=== PATIENT | male | born 1980 | race Hispanic/Latino ===

== ENCOUNTER 2025-07-14 21:01 | Inpatient (IN) | payer OTHER ==
[2025-07-14 21:22] LABS: Actual Bicarbonate (HCO3v) 22.3 mEq/L (22-28); Analyzer IN Cardio ER; Base Excess -1.5 mEq/L (-2.0 to +3.0); Calcium, Ionized (venous) 1.11 mmol/L (1.16-1.32); Chloride (VBG) 107 mmol/L (98-106); Hematocrit-VBG 44 % (42.0-52.0); Hemoglobin (Hb) 15.1 g/dL (13.2-17.3); Potassium (VBG) 3.14 mmol/L (3.70-5.30); Sodium 142 mmol/L (133-146)
[2025-07-14] MEDS ORDERED: Rocuronium Bromide 10 MG/ML (10ML VIAL) ONE (21:30)
[2025-07-14] MEDS ORDERED: Etomidate 40 MG (20 mL) VIAL ONE (21:30)
[2025-07-14 21:32] LABS: INR-International Normal Ratio 1.0; PTT 28.0 sec (22.9-36.1); Prothrombin Time 13.6 sec (12.0-14.7)
[2025-07-14 21:33] LABS: ALT (SGPT) 28 U/L (Less than 45); AST (SGOT) 22 U/L (11-34); Albumin 4.2 g/dL (3.1-4.5); Alkaline Phosphatase 62 U/L (40-110); Anion Gap 16 mmol/L (10-20); BUN (Urea Nitrogen) 20 mg/dL (8.9-20.6); Bilirubin, Total 0.9 mg/dL (0.3-1.2); Calc. Creatinine Clearance 0 mL/min (70-130); Calcium 9.0 mg/dL (7.8-10.44); Carbon Dioxide 24 mmol/L (22-29); Chloride 108 mmol/L (98-107); Globulin 3.2 g/dL (2.4-3.5); Glucose 90 mg/dL (70-105); Potassium 3.0 mmol/L (3.5-5.1); Sodium 145 mmol/L (136-145)
[2025-07-14 21:57] LABS: #Basophils Less than 0.03 10x3/uL (0.0-0.2); #Eosinophils 0.05 10x3/uL (0.0-0.7); #Monocytes 0.56 10x3/uL (0.11-0.59); #Neutrophils 3.93 10x3/uL (1.40-6.50); %Basophils 0.3 % (0.0-1.0); %Eosinophils 0.8 % (0.0-10.0); %Lymphocytes 30.8 % (21.0-51.0); %Monocytes 8.5 % (0.0-10.0); %Neutrophils 59.4 % (42.0-75.0); Hematocrit 42.0 % (42.0-52.0); Hemoglobin 13.8 g/dL (14.0-18.0); Mean Corpuscular Hemoglobin 27.9 pg (27.0-31.0); Mean Corpuscular Volume 84.8 fL (78.0-98.0); Platelet Count 151 10x3/uL (130-400); Red Blood Cell (RBC) Count 4.95 mill/uL (4.70-6.10); White Blood Cell (WBC) Count 6.60 10x3/uL (4.8-10.8)
[2025-07-14] MEDS ORDERED: Ondansetron PF 4 MG/2 ML Vial IVP PRN (22:53)
[2025-07-14 23:58] VITALS: BMI 28.8
[2025-07-15 00:31] LABS: Magnesium 2.1 mg/dL (1.6-2.6)
[2025-07-15] MEDS ORDERED: PHOS-NAK 1 PKT PACK PO PRN (01:00)
[2025-07-15] MEDS: Potassium Chloride 20 MEQ in Premix 1 BAG IVPB SCH ×2 (01:30→03:29)
[2025-07-15] MEDS ORDERED: Potassium Chloride 20 MEQ (100 mL) BAG ONE ×2 (01:31→03:19)
[2025-07-15] MEDS: Electrolyte Replacement Protocol 1 EACH FS ONE (02:23)
[2025-07-15 05:24] LABS: #Basophils Less than 0.03 10x3/uL (0.0-0.2); #Eosinophils Less than 0.03 10x3/uL (0.0-0.7); #Monocytes 0.21 10x3/uL (0.11-0.59); #Neutrophils 6.68 10x3/uL (1.40-6.50); %Basophils 0.1 % (0.0-1.0); %Eosinophils 0.1 % (0.0-10.0); %Lymphocytes 6.1 % (21.0-51.0); %Monocytes 2.8 % (0.0-10.0); %Neutrophils 90.5 % (42.0-75.0); Hematocrit 39.8 % (42.0-52.0); Hemoglobin 13.1 g/dL (14.0-18.0); Mean Corpuscular Hemoglobin 27.9 pg (27.0-31.0); Mean Corpuscular Volume 84.9 fL (78.0-98.0); Platelet Count 134 10x3/uL (130-400); Red Blood Cell (RBC) Count 4.69 mill/uL (4.70-6.10); White Blood Cell (WBC) Count 7.39 10x3/uL (4.8-10.8)
[2025-07-15 05:42] LABS: ALT (SGPT) 27 U/L (Less than 45); AST (SGOT) 20 U/L (11-34); Albumin 3.8 g/dL (3.1-4.5); Alkaline Phosphatase 56 U/L (40-110); Anion Gap 12 mmol/L (10-20); BUN (Urea Nitrogen) 18 mg/dL (8.9-20.6); Bilirubin, Total 1.1 mg/dL (0.3-1.2); Calc. Creatinine Clearance 171 mL/min (70-130); Calcium 8.8 mg/dL (7.8-10.44); Carbon Dioxide 22 mmol/L (22-29); Chloride 110 mmol/L (98-107); Globulin 3.8 g/dL (2.4-3.5); Glucose 116 mg/dL (70-105); Potassium 4.3 mmol/L (3.5-5.1); Sodium 140 mmol/L (136-145)
[2025-07-15 07:17] LABS: Cocaine Metabolite Screen Negative (Negative); THC/Cannabinoid Screen Negative (Negative); Tricyclic Screen Negative (Negative)
[2025-07-15 07:18] LABS: Bacteria/HPF None Seen HPF (None Seen); CAUTI Indications for Culture Alt mental st,lethar; Glucose, Urine (Dipstick) Normal (Negative); Leukocyte Negative Leu/uL (Negative); Protein, Urine (Dipstick) Negative (Neg-Trace); RBC/HPF 0-3 HPF (0-3); Specific Gravity, Urine 1.025 (1.002-1.036); WBC/HPF 0-3 HPF (0-3)
[2025-07-15 07:28] LABS: Urine Culture Reflex No No
[2025-07-15] MEDS: Sertraline 25 MG TAB PO SCH (09:22)
[2025-07-15] MEDS: Pyridostigmine Bromide IR 60 MG TAB PO SCH (11:00)
[2025-07-15] MEDS: Enoxaparin 40 MG (0.4 mL) SYRINGE SC SCH (11:09)
[2025-07-15] MEDS: Pantoprazole 40 MG VIAL IVP SCH (11:10)
[2025-07-15] MEDS ORDERED: OCTAGAM 10% (10 GM/100 ML VIAL) IVPB SCH ×2 (16:00→20:00)
[2025-07-15] MEDS: Ketorolac Tromethamine 30 MG (1 mL) VIAL IVP PRN (21:24)
[2025-07-16] MEDS ORDERED: Rocuronium Bromide 10 MG/ML (10ML VIAL) ONE (05:50)
[2025-07-16] MEDS ORDERED: Etomidate 40 MG (20 mL) VIAL ONE (05:57)
[2025-07-16] MEDS ORDERED: levETIRAcetam 500 MG (5 mL) VIAL SLOW IVP SCH ×2 (06:15→09:00)
[2025-07-16] MEDS ORDERED: Propofol BOLUS 1,000 MG/100 ML VIAL IV PRN (06:15)
[2025-07-16] MEDS ORDERED: Fentanyl BOLUS 100 ML IVPB PRN (06:15)
[2025-07-16 06:21] LABS: Actual Bicarbonate (HCO3a) 25.0 mEq/L (22-28); Base Excess (BEa) -3.9 mEq/L (-2.0 to +3.0); Calcium, Ionized (arterial) 1.18 mmol/L (1.12-1.30); Hematocrit-ABG 43 % (42.0-52.0); Hemoglobin (Hb) 14.5 g/dL (14.0-18.0); Potassium - ABG Lab 3.60 mmol/L (3.70-5.30); pH, Arterial 7.224 (7.35-7.45)
[2025-07-16 06:34] LABS: Anion Gap 18 mmol/L (10-20); BUN (Urea Nitrogen) 15 mg/dL (8.9-20.6); Calc. Creatinine Clearance 182 mL/min (70-130); Calcium 8.6 mg/dL (7.8-10.44); Carbon Dioxide 20 mmol/L (22-29); Chloride 104 mmol/L (98-107); Glucose 173 mg/dL (70-105); Magnesium 2.0 mg/dL (1.6-2.6); Potassium 3.5 mmol/L (3.5-5.1); Sodium 138 mmol/L (136-145)
[2025-07-16] MEDS: Ventilator Sedation Protocol 1 EACH FS ONE (07:12)
[2025-07-16] MEDS ORDERED: Norepinephrine 8 MG/0.9% NS 250 ML IVPB SCH (07:45)
[2025-07-16] MEDS ORDERED: NOREPINEPHRINE 8 MG/250 ML-D5W 250 ML IVPB SCH (07:45)
[2025-07-16] MEDS: Potassium Chloride 20 MEQ in Premix 1 BAG IVPB PRN (08:50)
[2025-07-16] MEDS: FLU (Fluarix Triv) 25-26 (6MOS UP)/PF 45 MCG/0.5 ML Syringe IM ONE (10:19)
[2025-07-16 12:23] LABS: HIV (1/2) Antibody/Antigen NONREACTIVE (NonReactive); HIV 1/2 INDEX 0.06 S/CO (<1.00)
[2025-07-16] MEDS: methylPREDNISolone Sod Succ/PF 250 MG, Admixture Fee 1 EACH in Sodium Chloride 0.9% 100 ML IVPB SCH (13:49)
[2025-07-16 14:36] LABS: Syphilis Antibody Index 0.34 S/CO (<1.00 Non-Reactive)
[2025-07-16 15:45] VITALS: BMI 28.3
[2025-07-16 18:43] LABS: Potassium 3.9 mmol/L (3.5-5.1)
[2025-07-17 02:13] VITALS: BP 108/57
[2025-07-17 05:37] LABS: ALT (SGPT) 51 U/L (Less than 45); AST (SGOT) 32 U/L (11-34); Albumin 2.9 g/dL (3.1-4.5); Alkaline Phosphatase 45 U/L (40-110); Anion Gap 12 mmol/L (10-20); BUN (Urea Nitrogen) 16 mg/dL (8.9-20.6); Bilirubin, Total 1.4 mg/dL (0.3-1.2); Calc. Creatinine Clearance 159 mL/min (70-130); Calcium 8.6 mg/dL (7.8-10.44); Carbon Dioxide 22 mmol/L (22-29); Chloride 105 mmol/L (98-107); Globulin 4.5 g/dL (2.4-3.5); Glucose 132 mg/dL (70-105); Magnesium 1.6 mg/dL (1.6-2.6); Potassium 3.7 mmol/L (3.5-5.1); Sodium 135 mmol/L (136-145)
[2025-07-17 05:47] LABS: #Basophils Less than 0.03 10x3/uL (0.0-0.2); #Eosinophils Less than 0.03 10x3/uL (0.0-0.7); #Monocytes 0.29 10x3/uL (0.11-0.59); #Neutrophils 10.37 10x3/uL (1.40-6.50); %Basophils 0.1 % (0.0-1.0); %Eosinophils 0.0 % (0.0-10.0); %Lymphocytes 1.8 % (21.0-51.0); %Monocytes 2.7 % (0.0-10.0); %Neutrophils 95.0 % (42.0-75.0); Hematocrit 36.6 % (42.0-52.0); Hemoglobin 12.1 g/dL (14.0-18.0); Mean Corpuscular Hemoglobin 27.6 pg (27.0-31.0); Mean Corpuscular Volume 83.6 fL (78.0-98.0); Platelet Count 101 10x3/uL (130-400); Red Blood Cell (RBC) Count 4.38 mill/uL (4.70-6.10); White Blood Cell (WBC) Count 10.91 10x3/uL (4.8-10.8)
[2025-07-17 07:11] LABS: Actual Bicarbonate (HCO3a) 26.6 mEq/L (22-28); Base Excess (BEa) 3.6 mEq/L (-2.0 to +3.0); CO2 Tension 35.0 mmHg (35.0-45.0); Calcium, Ionized (arterial) 1.18 mmol/L (1.12-1.30); Hematocrit-ABG 40 % (42.0-52.0); Hemoglobin (Hb) 13.5 g/dL (14.0-18.0); O2 Tension (PaO2), arterial 103.9 mmHg (80.0-100.0); Potassium - ABG Lab 4.12 mmol/L (3.70-5.30); pH, Arterial 7.499 (7.35-7.45)
[2025-07-17 07:13] LABS: Puncture Site Left Radial artery
[2025-07-17 09:48] LABS: CO2 Tension 61.8 mmHg (35.0-45.0)
[2025-07-17 09:49] LABS: O2 Tension (PaO2), arterial 57.0 mmHg (80.0-100.0)
[2025-07-17] MEDS: Magnesium 2 GM/50 ML(in water) 2 GM in Premix 1 BAG IVPB PRN (10:12)
[2025-07-17] MEDS: Scopolamine 1 mg/72 hour Patch TD SCH (10:15)
[2025-07-17] MEDS ORDERED: OCTAGAM 10% (20 GM/200 ML VIAL) IVPB SCH (12:00)
[2025-07-17] MEDS: Privigen 40 GM in Admixture Fee 1 EACH IVPB SCH (12:31)
[2025-07-17 14:25] LABS: ANA Symphony (Qualitative) POSITIVE (Negative); ANA Symphony (Quantitative) 4.2 Ratio (< 0.7 Negative); CENP IgG Antibody 1.8 EliAU/mL (<7 Negative); RNP70 IgG Antibody 2.1 EliAU/mL (<7 Negative); SSA/Ro IgG Antibody 15.0 EliAU/mL (<7 Negative); SSB/La IgG Antibody 0.8 EliAU/mL (<7 Negative); Scleroderma-70 IgG Antibody 1.5 EliAU/mL (<7 Negative); Smith D IgG Antibody 1.8 EliAU/mL (<7 Negative); U1RNP IgG Antibody 4.9 EliAU/mL (<5 Negative); dsDNA IgG Antibody 3.5 IU/mL (<10 Negative)
[2025-07-18 05:03] LABS: #Basophils Less than 0.03 10x3/uL (0.0-0.2); #Eosinophils Less than 0.03 10x3/uL (0.0-0.7); #Monocytes 0.35 10x3/uL (0.11-0.59); #Neutrophils 9.18 10x3/uL (1.40-6.50); %Basophils 0.0 % (0.0-1.0); %Eosinophils 0.0 % (0.0-10.0); %Lymphocytes 2.0 % (21.0-51.0); %Monocytes 3.6 % (0.0-10.0); %Neutrophils 93.9 % (42.0-75.0); Hematocrit 36.8 % (42.0-52.0); Hemoglobin 12.5 g/dL (14.0-18.0); Mean Corpuscular Hemoglobin 28.9 pg (27.0-31.0); Mean Corpuscular Volume 85.0 fL (78.0-98.0); Platelet Count 118 10x3/uL (130-400); Red Blood Cell (RBC) Count 4.33 mill/uL (4.70-6.10); White Blood Cell (WBC) Count 9.78 10x3/uL (4.8-10.8)
[2025-07-18 05:34] LABS: Anion Gap 8 mmol/L (10-20); BUN (Urea Nitrogen) 18 mg/dL (8.9-20.6); Calc. Creatinine Clearance 188 mL/min (70-130); Calcium 8.6 mg/dL (7.8-10.44); Carbon Dioxide 26 mmol/L (22-29); Chloride 108 mmol/L (98-107); Glucose 142 mg/dL (70-105); Potassium 4.1 mmol/L (3.5-5.1); Sodium 138 mmol/L (136-145)
[2025-07-18 07:40] LABS: Actual Bicarbonate (HCO3a) 26.7 mEq/L (22-28); Base Excess (BEa) 2.0 mEq/L (-2.0 to +3.0); CO2 Tension 41.9 mmHg (35.0-45.0); Calcium, Ionized (arterial) 1.20 mmol/L (1.12-1.30); Hematocrit-ABG 40 % (42.0-52.0); Hemoglobin (Hb) 13.5 g/dL (14.0-18.0); O2 Tension (PaO2), arterial 126.9 mmHg (80.0-100.0); Potassium - ABG Lab 4.25 mmol/L (3.70-5.30); pH, Arterial 7.422 (7.35-7.45)
[2025-07-18 07:42] LABS: ALV-art Gradient 105.925 mmHg (0-20); Puncture Site Left Radial artery
[2025-07-18] MEDS: Mupirocin 1 GM TUBE NASAL DECOLONIZATION NASAL SCH (09:39)
[2025-07-18] MEDS: DC Sedation Protocol FS ONE (10:10)
[2025-07-18] MEDS: Privigen 10 GM, Privigen 20 GM in Admixture Fee 1 EACH IVPB SCH (13:19)
[2025-07-18 15:47] LABS: Actual Bicarbonate (HCO3a) 25.3 mEq/L (22-28); Base Excess (BEa) -1.3 mEq/L (-2.0 to +3.0); CO2 Tension 50.2 mmHg (35.0-45.0); Calcium, Ionized (arterial) 1.17 mmol/L (1.12-1.30); Hematocrit-ABG 39 % (42.0-52.0); Hemoglobin (Hb) 13.2 g/dL (14.0-18.0); O2 Tension (PaO2), arterial 86.0 mmHg (80.0-100.0); Potassium - ABG Lab 4.10 mmol/L (3.70-5.30); pH, Arterial 7.321 (7.35-7.45)
[2025-07-18 15:49] LABS: Puncture Site Left Radial artery
[2025-07-18 16:05] VITALS: TEMP 98.7
[2025-07-18] MEDS: Etomidate 40 MG (20 mL) VIAL IVP SCH (16:13)
[2025-07-18] MEDS: Ventilator Sedation Protocol 1 EACH FS ONE (16:14)
[2025-07-18] MEDS ORDERED: DISCONTINUE PREVIOUS NARCOTIC PAIN MEDICATIONS AND BENZODIAZEPINES FS SCH (16:15)
[2025-07-18] MEDS ORDERED: Propofol BOLUS 1,000 MG/100 ML VIAL IV PRN (16:15)
[2025-07-18] MEDS ORDERED: Fentanyl BOLUS 100 ML IVPB PRN (16:15)
== END 2025-07-18 20:10 | disposition short-term general hospital (02) | DRG 56 ==
LOC: ERS 21:01 → EEVIPCON 21:01 → ERHOLD 22:53 → IMCU/EMU 07-15 08:27 → CCU 07-16 06:13
PROVIDERS: ADMIT Internal Medicine; ATTEND Internal Medicine
PROC: 4A133R1 Monitoring of Arterial Saturation, Peripheral, Percutaneous Approach (ICD-10-PCS; 2025-07-14)
PROC: XX20X89 Monitoring of Brain Electrical Activity, Computer-aided Detection and Notification, New Technology Group 9 (ICD-10-PCS; principal; 2025-07-16)
PROC: 0T9B70Z Drainage of Bladder with Drainage Device, Via Natural or Artificial Opening (ICD-10-PCS; 2025-07-16)
DX: G70.01 Myasthenia gravis with (acute) exacerbation (principal); G93.41 Metabolic encephalopathy; J96.01 Acute respiratory failure with hypoxia; M32.10 Systemic lupus erythematosus, organ or system involvement unspecified; F41.9 Anxiety disorder, unspecified; F32.A Depression, unspecified; E87.6 Hypokalemia; E88.09 Other disorders of plasma-protein metabolism, not elsewhere classified; R13.12 Dysphagia, oropharyngeal phase; R49.0 Dysphonia; Z79.899 Other long term (current) drug therapy
CPT/HCPCS: 36415; 36416; 36600; 70450; 71045; 80048; 80053; 80306; 81001; 82805; 83605; 83735; 84100; 84146; 84484; 85025; 85610; 85730; 86038; 86141; 86160; 86225; 86235; 86780; 87389; 93005; 93306; 94002; 94003; 94760; 95705; 96365; 96375; J1459; J1650; J1885; J2060; J2470; J2704; J2919; J3475; J3480; J7120